=== PATIENT | female | born 1935 | race Caucasian/White ===

== ENCOUNTER → 2017-08-17 | Outpatient (CLI) | payer OTHER ==
[~2017-08-17] MED LIST: ABILIFY20 MG PO; ASPIRIN EC81 M1 PO; AZELASTINE137 MCG/0. NS; BENADRYL PO; CELEXA20 MG PO; CENTRUM SILVER1 EAC4 PO; FISHOIL PO; GLUCOSAMINE &1 EACH PO; HYDROCODON-ACE1 EAC1 PO; HYDROCODONE-AP1 EAC6 PO; KEFLEX500 MG PO; LASIX 40 MG TAB40 M2 PO; LEVAQUIN 250 M250 MG PO; LEVAQUIN 500 M500 MG PO; LEVOTHYROXIN0.025 MG PO; LIDOCAINE; LORTAB 5 MG/5001 TA1 PO; PEPCID AC10 MG PO; PREDNISONE 10 M10 MG PO; PRINIVIL20 MG PO; PROAIR HFA8.5 GM IH; SEROQUEL 25 MG25 M1 PO; SIMVASTATIN20 MG PO; SPIRIVA INH; SYNTHROID50 MCG PO; TRAMADOL 50 MG50 MG PO; TRIAMCINOLONE A80 G2 TOP; VITAMIN D400 UNI1 PO; WELCHOL 625 MG625 MG PO; WELCHOL PO; XANAX 0.5 MG0.5 MG PO; ZINC CHELATE15 MG PO; ZYRTEC10 MG PO
[2017-08-17 09:13] LABS: CREATININE 0.9 mg/dL (0.6-1.0)
== END ==
LOC: LAB 06:13
PROVIDERS: Surgery
DX: I71.4 Abdominal aortic aneurysm, without rupture (principal); K57.30 Diverticulosis of large intestine without perforation or abscess without bleeding; N28.1 Cyst of kidney, acquired; M16.11 Unilateral primary osteoarthritis, right hip; J98.11 Atelectasis; Z95.828 Presence of other vascular implants and grafts